=== PATIENT | female | born 1955 | race Two or more races ===

== ENCOUNTER 2023-12-25 15:34 | Emergency (ER) | payer OTHER ==
[2023-12-25 16:14] VITALS: BP 120/71; PULSE 84; RESP 16; TEMP 98.4; BMI 30.4
[2023-12-25] MEDS ORDERED: predniSONE 20 MG TABLET (UD) ONE (16:35)
[2023-12-25] MEDS ORDERED: ALBUTEROL SO4 2.5/IPRATROPIUM 0.5 INH SOL 3 ML VIAL.NEB. NEB ONE (16:35)
[2023-12-25 16:40] LABS: HEMATOCRIT 33.4 % (32.4-45.2); HEMOGLOBIN 10.3 G/dL (10.7-15.3); MCH 27.2 pg (25.7-33.7); MCHC 30.8 g/dl (32.0-36.0); MEAN PLT VOLUME 9.4 fl (7.5-11.1); PLATELET COUNT 216.1 10^3/uL (134-434); RBC 3.79 10^6/uL (3.60-5.2); RDW 16.4 % (11.6-15.6); WHITE BLOOD COUNT 6.5 10^3/uL (4.0-10.8)
[2023-12-25] MEDS: predniSONE 20 MG TABLET (UD) PO ONE (16:41)
[2023-12-25] MEDS: ALBUTEROL SO4 2.5/IPRATROPIUM 0.5 INH SOL 3 ML VIAL.NEB. NEB SCH (16:41)
[2023-12-25 16:49] LABS: ALBUMIN 4.3 g/dl (3.4-5.0); BILIRUBIN,TOTAL 0.5 mg/dl (0.2-1); CALCIUM 9.7 mg/dl (8.5-10.1); MAGNESIUM 1.9 mg/dL (1.8-2.4); POTASSIUM 3.8 mmol/L (3.5-5.1); TOT PROT 6.1 g/dl (6.4-8.2)
[2023-12-25 17:08] LABS: PLATELET ESTIMATE ADEQUATE
== END 2023-12-25 17:18 | disposition home or self-care (01) ==
LOC: FER 15:34
PROC: 3E0F7GC Introduction of Other Therapeutic Substance into Respiratory Tract, Via Natural or Artificial Opening (ICD-10-PCS; principal; 2023-12-25)
DX: J45.901 Unspecified asthma with (acute) exacerbation (principal); R06.02 Shortness of breath; R07.89 Other chest pain; R05.9 Cough, unspecified; Z20.822 Contact with and (suspected) exposure to COVID-19
CPT/HCPCS: 0241U-QW; 36415; 71046-TC-FY; 80053; 83735; 84484; 85027; 93005; 99285-25